=== PATIENT | female | born 1960 ===

== ENCOUNTER 2017-11-30 07:39 | Day surgery (SDC) | payer OTHER, SELFPAY ==
[~2017-11-30] VITALS: Ht 167.6 cm; Wt 84.8 kg
[~2017-11-30 07:39] MED LIST: ESCI20 PO; Estradiol0.5 MG PO; GABA300 PO; Pravastatin Sod40 MG PO; Prednisone20 MG PO; Synthroid25 MCG PO; TRAM50 PO; TRAZ50 PO
== END 2017-11-30 10:15 | disposition home or self-care (01) ==
LOC: ORSCSDS 07:39
PROVIDERS: Internal Medicine Gastroenterology
PROC: 0DBM8ZX Excision of Descending Colon, Via Natural or Artificial Opening Endoscopic, Diagnostic (ICD-10-PCS; principal; 2017-11-30 08:45)
PROC: 0DBL8ZX Excision of Transverse Colon, Via Natural or Artificial Opening Endoscopic, Diagnostic (ICD-10-PCS; principal; 2017-11-30 08:45)
DX: Z12.11 Encounter for screening for malignant neoplasm of colon (principal); K63.5 Polyp of colon; K57.30 Diverticulosis of large intestine without perforation or abscess without bleeding; K64.8 Other hemorrhoids; E03.9 Hypothyroidism, unspecified; Z79.899 Other long term (current) drug therapy
CPT/HCPCS: 88305; J0330; J1980; J2405; J7030; J7120

== ENCOUNTER 2017-12-13 13:14 | Inpatient (IN) | payer OTHER, SELFPAY ==
[~2017-12-13] VITALS: Ht 167.6 cm; Wt 85.7 kg
[2017-12-29] MEDS ORDERED: ROSU10TA PO (13:25)
[2018-01-20 03:51] LABS: BASOPHILS PERCENT AUTO 0 % (0-2); EOSINOPHILS ABSOLUTE AUTO 0.14 K/mm3 (0.00-0.68); EOSINOPHILS PERCENT AUTO 2 % (0-6); Hematocrit 34.5 % (33.0-51.0); Hemoglobin 11.8 g/dL (11.5-16.0); IMMATURE GRAN ABSOLUTE AUTO 0.02 K/mm3 (0.00-0.10); IMMATURE GRAN PERCENT AUTO 0 % (0-1); LYMPHOCYTES ABSOLUTE AUTO 0.15 K/mm3 (0.84-5.20); LYMPHOCYTES PERCENT AUTO 3 % (21-46); MONOCYTES ABSOLUTE AUTO 0.11 K/mm3 (0.16-1.47); MONOCYTES PERCENT AUTO 2 % (4-13); Mean Corpuscular HGB 32.8 pg (26.0-34.0); Mean Corpuscular HGB Conc 34.2 g/dL (31.5-36.5); Mean Corpuscular Volume 96 fL (80-100); Mean Platelet Volume 9.7 fL (9.1-12.4); NEUTROPHILS ABSOLUTE AUTO 5.42 K/mm3 (1.96-9.15); NEUTROPHILS PERCENT AUTO 93 % (41-73); Platelet Count 227 K/mm3 (150-400); RDW Coefficient Variation 12.3 % (11.7-14.2); RDW Standard Deviation 42.8 fL (35.1-46.3); White Blood Cell Count 5.84 K/mm3 (4.00-11.30)
[2018-01-20 04:10] LABS: Anion Gap 11 mmol/L (6-16); Blood Urea Nitrogen 13 mg/dL (8-24); Bun/Creatinine Ratio 18.3 (12.0-20.0); CO2, Blood 23 mmol/L (21-32); Calcium, Blood 7.7 mg/dL (8.5-10.1); Chloride, Blood 101 mmol/L (98-108); Creatinine, Blood 0.71 mg/dL (0.40-1.00); Glomerular Filtration Rate >60 (60-); Glucose, Blood 130 mg/dL (70-99); Potassium, Blood 3.8 mmol/L (3.5-5.5); Sodium, Blood 135 mmol/L (136-145)
[2018-01-20] MEDS ORDERED: HYDR1TAB94 PO (11:44)
[2018-01-20] MEDS ORDERED: ASPI325EC PO (11:44)
== END 2018-01-20 12:40 | disposition home or self-care (01) | DRG 470 ==
LOC: SURS 01-19 06:03 → PRE IP 01-19 07:30 → SURS 01-19 10:59
PROVIDERS: Orthopaedic Surgery
PROC: BQ13ZZZ Fluoroscopy of Right Femur (ICD-10-PCS; 2018-01-19)
PROC: 0SR904Z Replacement of Right Hip Joint with Ceramic on Polyethylene Synthetic Substitute, Open Approach (ICD-10-PCS; principal; 2018-01-19 07:30)
DX: M87.051 Idiopathic aseptic necrosis of right femur (principal); M85.68 Other cyst of bone, other site; E78.00 Pure hypercholesterolemia, unspecified; F41.9 Anxiety disorder, unspecified; E03.9 Hypothyroidism, unspecified; M51.36 Other intervertebral disc degeneration, lumbar region; Z79.899 Other long term (current) drug therapy; Z88.8 Allergy status to other drugs, medicaments and biological substances
CPT/HCPCS: 36415; 72170; 80048; 85025; 86850; 86900; 86901; 97110; 97116; 97162; 97530; C1776; G8978; G8979; J0171; J0690; J0735; J1885; J2250; J2795; J3010; J7120; Q0163